=== PATIENT | female | born 1990 | race Two or more races ===

== ENCOUNTER 2025-03-29 12:57 | Emergency (ER) | payer OTHER ==
[~2025-03-29] VITALS: Ht 154.9 cm; Wt 68.2 kg
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
--- NOTE | 2025-03-29 13:40 | ECG ---
[facility] Test Date: 2025-03-29 Test Time: 12:56:40 Pat Name: HOLLAND SOTO Department: Room: Gender: F Employment Service Specialist: NAIDA : 1990 Requested By: PRINCESS HERNANDEZ Order Number: [id number] Reading MD: Bhavesh Weiner Measurements Intervals [place] Rate: 52 P: 34 [place]: 138 QRS: 36 QRSD: 97 T: 48 QT: 438 QTc: 408 Interpretive Statements Sinus rhythm Electronically Signed On 03-29-2025 17:02:20 PDT by Bhavesh Weiner Please click the below link to view image of tracing.
[2025-03-29 14:11] VITALS: BP 93/58; PULSE 53; RESP 20; TEMP 97.6; O2SAT 98
--- NOTE | 2025-03-29 14:16 | DVH ---
EXAM: CT HEAD WITHOUT CONTRAST INDICATION: dizzy TECHNIQUE: CT of the head without intravenous contrast. Radiation Dose Information: CT Dose: CTDI volume is 53.69 mGy. Dose-length product is 1077.17 mGy*cm The dose indicators for CT are the volume Computed Tomography (CT) Dose Index (CTDIvol) and the Dose Length Product (DLP), and are measured in units of mGy and mGy-cm, respectively. These indicators are not patient dose, but values generated from the CT scanner acquisition factors. The report includes radiation exposure data for exposures received during this examination. COMPARISON: None FINDINGS: There is no evidence of acute intracranial hemorrhage, extra-axial collection, mass effect, midline s hift, herniation or hydrocephalus. The ventricles, sulci and cisterns are age appropriate. The berman-white differentiation is intact. Patchy periventricular and subcortical white matter hypoattenuation is nonspecific but may be related to small vessel ischemic disease. The visualized paranasal sinuses and mastoid air cells are clear. The surrounding soft tissues and osseous structures are unremarkable. IMPRESSION: 1. No acute intracranial hemorrhage. 2. No paranasal sinus disease. 3. No territorial ischemia
[2025-03-29] MEDS ORDERED: CEPH250C PO (16:01)
== END 2025-03-29 17:00 | disposition home or self-care (01) ==
LOC: ER 12:57 → EDBD 12:57 → ER 17:00
DX: G90.9 Disorder of the autonomic nervous system, unspecified (principal); Z79.899 Other long term (current) drug therapy
CPT/HCPCS: 70450; 93005